=== PATIENT | female | born 1965 | race African-American/Black ===

== ENCOUNTER 2023-04-06 08:30 | Day surgery (SDC) | payer OTHER ==
[2023-04-06] MEDS ORDERED: METOPROLOL TARTRATE 5 MG/5 ML VIAL ONE (09:48)
[2023-04-06 10:25] VITALS: RESP 16; TEMP 97.9
[2023-04-06 10:32] VITALS: BP 121/68; PULSE 90
== END 2023-04-06 10:55 | disposition home or self-care (01) ==
LOC: FASU-ENDO 08:30
PROVIDERS: ATTEND Internal Medicine Gastroenterology
PROC: 0DJD8ZZ Inspection of Lower Intestinal Tract, Via Natural or Artificial Opening Endoscopic (ICD-10-PCS; principal; 2023-04-06 09:49)
DX: Z12.11 Encounter for screening for malignant neoplasm of colon (principal); K64.1 Second degree hemorrhoids; K64.8 Other hemorrhoids

== ENCOUNTER 2023-05-01 09:54 | Day surgery (SDC) | payer OTHER ==
[2023-04-27 09:22] VITALS: BMI 34.1
[2023-05-01] MEDS ORDERED: LIDOCAINE HCL/PF 2% SDV 5ML VIAL ONE (11:50)
[2023-05-01] MEDS ORDERED: ETOMIDATE 20 MG/10 ML VIAL IVPUSH ONE (11:50)
[2023-05-01 12:29] VITALS: RESP 18; TEMP 98
[2023-05-01 12:40] VITALS: BP 141/85; PULSE 84
== END 2023-05-01 12:45 | disposition home or self-care (01) ==
LOC: FASU-ENDO 09:54
PROVIDERS: ATTEND Internal Medicine Gastroenterology
PROC: 0DB68ZX Excision of Stomach, Via Natural or Artificial Opening Endoscopic, Diagnostic (ICD-10-PCS; 2023-05-01)
PROC: 0DB48ZX Excision of Esophagogastric Junction, Via Natural or Artificial Opening Endoscopic, Diagnostic (ICD-10-PCS; 2023-05-01)
PROC: 0DB98ZX Excision of Duodenum, Via Natural or Artificial Opening Endoscopic, Diagnostic (ICD-10-PCS; principal; 2023-05-01 11:57)
DX: K44.9 Diaphragmatic hernia without obstruction or gangrene (principal)
CPT/HCPCS: 88305-TC; 88342-TC